=== PATIENT | female | born 1990 | race Caucasian/White ===

== ENCOUNTER 2021-01-16 15:20 | Emergency (ER) | payer BC ==
[~2021-01-16] VITALS: Ht 165.1 cm; Wt 65.9 kg
[~2021-01-16 15:20] MED LIST: APRISO0.375 GM PO; CELEXA10 MG PO; CELEXA40 MG PO; LIALDA 1.2 GM1.2 GM PO; NASONEX SPRAY17 GM NS; SINGULAIR 110 MG/TAB PO; TRI-PREVIFEM1 TA1 PO; ZYRTEC 10MG10 MG PO
[2021-01-16 15:26] VITALS: TEMP 98.3
[2021-01-16 16:10] LABS: BASO % 0.3 % (0.0-2.0); EOS # 0.2 (0.0-0.7); EOS % 2.1 % (0-4.0); HEMATOCRIT 45.4 % (37.0-47.0); HEMOGLOBIN 14.8 g/dl (12.5-16.0); LYMPH # 2.5 (1.2-3.4); LYMPH % 35.2 % (20.0-51.0); MEAN CELL VOLUME 90 fl (80.0-100.0); MEAN CORPUSCULAR HEMOGLOBIN 29 pg (27.0-31.0); MEAN CORPUSCULAR HGB CONC 33 g/dl (33.0-37.0); MEAN PLATELET VOLUME 9.7 fl (7.4-10.4); MONO # 0.4 (0.1-0.6); MONO % 5.1 % (1.7-9.3); PLATELET COUNT 254 K/mm3 (130-400); RED BLOOD COUNT 5.03 M/mm3 (4.10-5.30); REDCELL DISTRIBUTION WIDTH-CV 13.2 % (11.5-14.5)
[2021-01-16 16:20] LABS: ALANINE AMINOTRANSFERASE 26 U/L (4-34); ALBUMIN 4.5 gm/dL (3.5-5.0); ALKALINE PHOSPHATASE 83 U/L (50-136); ANION GAP 7 mmol/L (7-16); AST,SGOT 35 U/L (15-37); BILIRUBIN,TOTAL 0.7 mg/dL (0.0-1.0); BLOOD UREA NITROGEN 11 mg/dL (7-17); C-REACTIVE PROTEIN < 0.5 mg/dL (0.0-0.9); CALCIUM 9.2 mg/dL (8.4-10.2); CARBON DIOXIDE 28 mmol/L (22-30); CHLORIDE 103 mmol/L (98-107); CREATININE, serum 0.77 (0.52-1.25); GLUCOSE 89 mg/dL (74-106); POTASSIUM 4.1 mmol/L (3.4-5.0); SODIUM 138 mmol/L (137-145); TOTAL PROTEIN 7.6 gm/dL (6.4-8.2)
[2021-01-16] MEDS ORDERED: NORCO 325 MG-51 TAB PO (18:19)
[2021-01-16 18:40] VITALS: BP 124/78; PULSE 84
== END 2021-01-16 18:50 | disposition home or self-care (01) ==
LOC: COL.ER 15:20
PROVIDERS: Nurse Practitioner
DX: S60.221A Contusion of right hand, initial encounter (principal); K51.90 Ulcerative colitis, unspecified, without complications; W22.01XA Walked into wall, initial encounter
CPT/HCPCS: J2270; J2405; Q9967